=== PATIENT | female | born 1985 | race Caucasian/White ===

== ENCOUNTER 2016-09-21 17:40 | Emergency (ER) | payer OTHER ==
[~2016-09-21 17:40] MED LIST: ALEVE220 M4 PO; COREG3.125 M1 PO; IBUPROFEN200 M3 PO; KEFLEX500 M4 PO; LEXAPRO10 M2 PO; LEXAPRO20 M2 PO; LOPRESSOR25 MG/TA7 PO; MELATONIN3 M4 PO; NORCO 5-325 TA1 EACH PO; ONDANSETRON IV; PAROXETINE HCL40 MG PO; PERCOCET 5-3251 EACH PO; PERCOCET 5/3251 TAB PO; PRENATAL1 EACH PO; PRILOSEC20 MG PO; TOBREX5 M1 OP; TORADOL10 MG PO; TYLENOL325 M1 PO; UNISOM SLEEP AI25 M1 PO; VITAMIN D31000 UNI4 PO; ZOFRAN4 MG PO; ZOLPIDEM TART6.25 M1 PO
[2016-09-21 18:51] LABS: BASO % 0.3 % (0-2); EOS % 2.6 % (0-7); EOSINOPHIL ABSOLUTE COUNT 0.3 tho/cmm (0.0-0.7); HCT-HEMATOCRIT 36.9 % (34.0-49.0); HGB-HEMOGLOBIN 12.5 gm/dl (12.0-15.5); IMMATURE GRANULOCYTES ABSOLUTE 0.03 tho/cmm (0-0.03); IMMATURE GRANULOCYTES PERCENT 0.3 % (0-0.3); LYMPH % 23.6 % (20-45); LYMPH ABSOLUTE COUNT 2.7 tho/cmm (0.8-4.5); MCH (MEAN CORPUSCULAR HGB) 27.1 pg (28.0-32.0); MCHC MEAN CORPUSCULAR HGB CONC 33.9 % (32.0-36.0); MEAN PLATELET VOLUME 9.1 cmc (9.4-12.4); MONO % 5.8 % (0-12); MONOCYTE ABSOLUTE COUNT 0.7 tho/cmm (0.0-1.2); NEUTROPHIL ABSOLUTE COUNT 7.8 tho/cmm (1.6-8.0); NEUTROPHIL-AUTOMATED 7.8 tho/cmm (1.6-8.0); NEUTROPHILS % 67.4 % (40-80); PLATELET COUNT 368 tho/cmm (150-450); RED BLOOD COUNT 4.61 mil/cmm (4.00-5.20); RED CELL DISTRIBUTION WIDTH 13.5 % (12.4-16.4); WHITE BLOOD COUNT 11.5 tho/cmm (4.0-10.0)
[2016-09-21 19:05] LABS: ALBUMIN 3.8 g/dl (3.5-5.0); ALKALINE PHOSPHATASE 67 U/L (33-138); ALT/SGPT 33 U/L (12-78); ANION GAP 13 mmol/L (0-20); AST/SGOT 18 U/L (10-40); BILIRUBIN,TOTAL 0.2 mg/dl (0-1.5); BLOOD UREA NITROGEN 7 mg/dl (6-24); CALCIUM 9.1 mg/dl (8.5-10.5); CARBON DIOXIDE-VENOUS 24 mmol/L (22-32); CHLORIDE 106 mmol/l (96-110); CREATININE 0.71 mg/dl (0.50-1.10); GLUCOSE 101 mg/dL (70-110); LIPASE 126 U/L (73-393); POTASSIUM 3.9 mmol/L (3.7-5.1); SODIUM 139 mmol/L (135-145); eGFR VALUE FOR BLACK >90 mL/Min
[2016-09-21 19:09] LABS: PREGNANCY-SERUM NEGATIVE (NEGATIVE)
[2016-09-21 19:23] LABS: URINE BILIRUBIN NEGATIVE (NEG); URINE BLOOD NEGATIVE (NEG); URINE GLUCOSE (UA) NEGATIVE (NEG); URINE KETONE NEGATIVE (NEG); URINE LEUKOCYTE ESTERASE NEGATIVE (NEG); URINE NITRITE NEGATIVE (NEG); URINE PROTEIN NEGATIVE (NEG)
[2016-09-21 19:26] LABS: URINE APPEARANCE CLEAR; URINE COLOR YELLOW
[2016-09-21 19:30] LABS: URINE BACTERIA 2+; URINE MUCUS 3+; URINE RBC 0 /[HPF] (0-5); URINE WBC RARE /[HPF] (0-5)
[2016-09-21] MEDS ORDERED: CITRATE OF MAG300 M1 PO (21:14)
[2016-09-21] MEDS ORDERED: ZOFRAN4 M2 PO (21:14)
== END 2016-09-21 21:25 ==
LOC: EDMED 17:40
PROVIDERS: Physician Assistant
DX: K59.00 Constipation, unspecified (principal); R11.2 Nausea with vomiting, unspecified; G43.909 Migraine, unspecified, not intractable, without status migrainosus; Z87.442 Personal history of urinary calculi
CPT/HCPCS: J1170; J2405; J7030; Q9967